=== PATIENT | female | born 1995 | race Caucasian/White ===

== ENCOUNTER 2016-07-07 17:15 | Emergency (ER) | payer OTHER ==
[2016-07-07 18:40] VITALS: BP 109/54
[2016-07-07] MEDS ORDERED: Sulfamethox/Trimethoprim DS 800/160* TAB PO ONE (19:34)
--- NOTE | 2016-07-07 19:34 | UC ---
Complaint Female HPI - HPI Summary HPI Summary: burning on urination since 07/08/16. Has had UTI's before. Took AZO OTC with some improvement but still with sxs. No fever. - History Of Current Complaint Chief Complaint: [facility]U Stated Complaint: URINARY Time Seen by Provider: 07/07/16 19:17 Hx Obtained From: Patient Hx Last Menstrual Period: 06/23/16 Onset/Duration: Gradual Onset, Lasting Days, Still Present Timing: Constant Severity Initially: Moderate Severity Currently: Moderate Pain Intensity: 0 Pain Scale Used: 0-10 Numeric Character: Burning Aggravating Factor(s): Nothing Alleviating Factor(s): Nothing Associated Signs And Symptoms: Negative: Fever, Back Pain, Vaginal Bleeding/ Discharge, Vaginal Discharge, Nausea, Vomiting(# Of Episodes =) Related Hx: Similar Episode/Dx as: - UTI, - 0 - Allergies/Home Medications Allergies/Adverse Reactions: Allergies Allergy/AdvReac Type Severity Reaction Status Date / Time No Known Allergies Allergy Verified 07/07/16 18:40 Home Medications: Home Medications Norgestimate-Ethinyl Estradiol [Trinessa Lo 0.18/0.215/0.25 mg-25 Mcg] 1 tab PO DAILY 07/07/16 [History Confirmed 07/07/16] Phenazopyridine HCl [Azo Urinary Pain Relief] 95 mg PO SEE INSTRUCTIONS PRN 05/11 [History Confirmed 07/07/16] PMH/Surg Hx/FS Hx/Imm Hx Previously Healthy: Yes - Surgical History Surgical History: Yes Surgery Procedure, Year, and Place: LEFT EYE SX--ELEMENTARY AGE X 1. - Family History Known Family History: Positive: Other - cancer - Social History Occupation: Student Alcohol Use: Rare Substance Use Type: None Smoking Status (MU): Never Smoked Tobacco Review of Systems Constitutional: Negative Skin: Negative Eyes: Negative ENT: Negative Respiratory: Negative Cardiovascular: Negative Gastrointestinal: Negative Genitourinary: Dysuria, Frequency, Urgency Motor: Negative Neurovascular: Negative Musculoskeletal: Negative Neurological: Negative Psychological: Negative All Other Systems Reviewed And Are Negative: Yes Physical Exam Triage Information Reviewed: Yes Appearance: No Pain Distress, Well-Nourished, Ill-Appearing Vital Signs: Initial Vital Signs Temp 98.7 F 07/07/16 18:33 Pulse 71 07/07/16 18:33 Resp 16 07/07/16 18:33 BP 109/54 07/07/16 18:33 Pulse Ox 100 07/07/16 18:33 Eye Exam: Normal Eyes: Positive: Conjunctiva Clear ENT: Positive: Normal ENT inspection Neck: Positive: Supple Respiratory: Positive: Lungs clear, Normal breath sounds, No respiratory distress Cardiovascular: Positive: RRR, No Murmur, Pulses Normal, Brisk Capillary Refill Abdomen Description: Positive: Nontender, No Organomegaly, Soft. Negative: CVA Tenderness (R), CVA Tenderness (L), Distended, Guarding, McBurney's Point Tenderness, Peritoneal Signs Bowel Sounds: Positive: Present Musculoskeletal: Positive: Strength Intact, ROM Intact Neurological: Positive: Alert, Muscle Tone Normal Psychological Exam: Normal Skin Exam: Normal Complaint Female Dx - Course Course Of Treatment: UA 500wbc's 1+ blood. HCG neg - Differential Dx/Diagnosis Differential Diagnosis/HQI/PQRI: Pelvic Inflammatory Disease, Ureteral Stone, Urinary Tract Infection Provider Diagnoses: UTI. Hematuria Discharge - Discharge Plan Condition: Stable Disposition: HOME Prescriptions: Sulfamethox/Trimethoprim DS* [Bactrim DS 800/160 TAB*] 1 tab PO BID #9 tab Patient Education Materials: Urinary Tract Infection in Women (ED), Hematuria ( ED) Referrals: Non Staff,Doctor [Primary Care Provider] - Additional Instructions: Return to urgent care if you have any new or worsening symptoms.
== END 2016-07-07 19:50 | disposition home or self-care (01) ==
LOC: UCCORT 17:15
DX: N39.0 Urinary tract infection, site not specified (principal); R31.9 Hematuria, unspecified; Z87.440 Personal history of urinary (tract) infections; Z32.02 Encounter for pregnancy test, result negative
CPT/HCPCS: 81025; 87077; 87086; 87186; 99202; A9270-GY; G0463